=== PATIENT | male | born 1995 | race Caucasian/White ===

== ENCOUNTER 2017-11-04 14:22 | Emergency (ER) | payer OTHER ==
[~2017-11-04] VITALS: Ht 188 cm; Wt 102.9 kg
[2017-11-04 14:26] VITALS: TEMP 36.4; Ht 188 cm; Wt 102.9 kg
--- NOTE | 2017-11-04 15:28 | DIAGNOSTIC IMAGING REPORT ---
HEAD WITHOUT CONTRAST (CT) CT DOSE: 750.83 mGy.cm HISTORY: Trauma fall eval for bleed TECHNIQUE: Multiaxial CT images of the head were performed without the use of intravenous contrast. A dose lowering technique was utilized adhering to the principles of ALARA. Comparison: None. Findings: The paranasal sinuses and mastoid air cells are clear. The calvarium and skull base are intact. The ventricles and sulci are within normal limits. There is no mass, hematoma, midline shift, or acute infarct. Impression: No acute intracranial abnormality. The above report was generated using voice recognition software. It may contain grammatical, syntax or spelling errors. Electronically signed by: Phong Elizalde M.D. 11/04/2017 3:27 PM Dictated Date/Time: 11/04/2017 3:26 PM
[2017-11-04 15:49] VITALS: BP 167/85; PULSE 69; O2SAT 97
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
== END 2017-11-04 15:55 | disposition home or self-care (01) ==
LOC: C.EDB 14:24 → C.EDA 15:55
DX: S06.0X0A Concussion without loss of consciousness, initial encounter (principal); W19.XXXA Unspecified fall, initial encounter; Z80.9 Family history of malignant neoplasm, unspecified

== ENCOUNTER 2017-12-18 01:38 | Emergency (ER) | payer OTHER ==
[~2017-12-18] VITALS: Ht 188 cm; Wt 96.1 kg
[2017-12-18 01:46] VITALS: TEMP 36.9; Ht 188 cm; Wt 96.1 kg
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
[2017-12-18] MEDS ORDERED: XYLOCAINE 1%/SOD BICARB 20 ML VIAL INFIL ONE (02:00)
[2017-12-18] MEDS ORDERED: DIPHTHERIA/TETANUS/PERTUSSIS 0.5 ML SYR/VIAL IM. ONE (02:00)
[2017-12-18 02:31] VITALS: BP 141/87; PULSE 95; O2SAT 94
[2017-12-18 02:31] LABS: BASO % 0.5 %; BASO ABS # 0.04 K/uL (0-0.2); EOS % 1.5 %; EOS ABS # 0.12 K/uL (0-0.5); HEMATOCRIT 40.4 % (42-52); HEMOGLOBIN 14.6 g/dL (14.0-18.0); IG# 0.02 K/uL (0.00-0.02); LYMPH % 40.1 %; LYMPH ABS # 3.13 K/uL (1.2-3.4); MEAN CELL VOLUME 91.8 fL (80-100); MEAN CORPUSCULAR HEMOGLOBIN 33.2 pg (25-34); MEAN CORPUSCULAR HGB CONC 36.1 g/dl (32-36); MEAN PLATELET VOLUME 9.9 fL (7.4-10.4); MONO % 9.1 %; MONO ABS # 0.71 K/uL (0.11-0.59); NEUT % 48.5 %; NEUT ABS # 3.78 K/uL (1.4-6.5); PLATELET COUNT 285 K/uL (130-400); RED CELL DISTRIBUTION WIDTH CV 12.2 % (11.5-14.5); RED CELL DISTRIBUTION WIDTH SD 41.4 fL (36.4-46.3)
[2017-12-18 02:47] LABS: CALCIUM 8.8 mg/dl (8.5-10.1); CREATININE 0.89 mg/dl (0.60-1.40); POTASSIUM 3.6 mmol/L (3.5-5.1)
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
== END 2017-12-18 04:21 | disposition home or self-care (01) ==
LOC: EDBD 01:38 → C.EDB 01:40
DX: S01.311A Laceration without foreign body of right ear, initial encounter (principal); S02.2XXA Fracture of nasal bones, initial encounter for closed fracture; Y04.0XXA Assault by unarmed brawl or fight, initial encounter; Y92.511 Restaurant or cafe as the place of occurrence of the external cause; Z23 Encounter for immunization